=== PATIENT | female | born 1950 | race Caucasian/White ===

== ENCOUNTER 2019-05-06 12:35 | Outpatient (CLI) | payer MEDICARE ==
[~2019-05-06 12:35] MED LIST: ASPI-1152 PO; CIPR2.5D LEFTEYE; DIPH1TAB PO; KETO5DRO83 LEFTEYE; LISI-603 PO; METF-440 PO; METO50TA16 PO; PRED5DRO16 LEFTEYE
[2019-05-06] MEDS ORDERED: LIDOCAINE 1% INJ 50 ML MDV IJ ONE (14:00)
[2019-05-06] MEDS ORDERED: DEXAMETHASONE SOD PHOSPHATE 10 MG/ML VIAL IJ ONE (14:00)
== END 2019-05-06 23:59 | disposition home or self-care (01) ==
LOC: WOU 12:35
PROVIDERS: ATTEND Podiatrist Foot & Ankle Surgery
DX: M72.2 Plantar fascial fibromatosis (principal); M79.672 Pain in left foot
CPT/HCPCS: 20550; J1100; J3490

== ENCOUNTER 2019-05-12 13:15 | Outpatient (CLI) | payer MEDICARE | END 2019-05-12 23:59 | disposition home or self-care (01) | LOC: WOU 13:15 | PROVIDERS: ATTEND Podiatrist Foot & Ankle Surgery | DX: M79.672 Pain in left foot (principal); M72.2 Plantar fascial fibromatosis; I10 Essential (primary) hypertension; E78.5 Hyperlipidemia, unspecified | CPT/HCPCS: G0463 ==